=== PATIENT | male | born 1995 | race Caucasian/White ===

== ENCOUNTER 2020-12-30 14:33 | Emergency (ER) | payer BC ==
[~2020-12-30] VITALS: Ht 190.5 cm; Wt 113.9 kg
--- NOTE | 2020-12-30 14:46 | Emergency Room Report ---
History of Present Illness General Chief Complaint: Abdominal Pain Source: Patient Present Illness HPI 25-year-old male presents with abdominal pain x1 month. Patient states that he is trying to lose weight and has been taking orlistat to help his digestion. He has been experiencing anorexia and diarrhea (non bloody). He denies nausea, vomiting, constipation, fever, chills, flank pain, hematuria, dysuria or any other symptoms. He apparently went to see his primary care doctor in regards to his abdominal pain yesterday and was diagnosed with a strain. When he woke up this morning, he noticed that his bellybutton had a small amount of dark red bleeding so he was directed to the ER for further evaluation. He has never happened to him before. Denies any piercings or abdominal trauma, melena, hematochezia. The patient's symptoms were gradual onset, severity was moderate, duration since 1 month. Bleeding started this morning.. Quality: Nonarterial Past medical history: Denies Past surgical history: Denies Smoking: Denies Alcohol use: Denies Drug use: Marijuana Review of systems: CONST: No fevers or chills, No night sweats PULMONARY: No productive cough, No shortness of breath CARDIAC: No chest pain, No palpitations GI: No vomiting, ++ diarrhea , No melena_or_BRBPR : No dysuria, No hematuria, No discharge NEURO: No new_focal_weakness_or_numbness, No confusion, No vision changes 14 point Review of Systems is otherwise negative except per HPI Physical Exam: GENERAL: Awake_alert_ nontoxic, no acute distress Spo2 98% on RA -normal EYES: Extraocular muscles are intact. Conjunctivae clear. Lids without swelling ENT: External nose and ear normal_in_appearance. Oropharynx clear. Head_atraumatic, Moist_oral_mucosa NECK: No JVD. No meningismus. No thyromegaly. Supple. Trachea midline RESP: Normal respiratory effort. Symmetric rise. No stridor. Clear_to_auscultation_No_rales_No_wheezes CARDIAC: Regular rate and regular rhytm. No_significant pedal edema. ABDOMEN: Soft. Obese. No palpable mass. No palpable or visible hernia. Negat syd Zuleta sign. Negative Rovsing's. Negative obturator. No CVA tenderness to palpation. Umbilicus is coated in old dried blood. Upon probing the umbilicus with Q tips, there is scant discharge. I am unable to visualize the endpoint of the Q-tip secondary to patient's adipose tissue. There is no pain out of proportion Nondistended. Nontender_No_rebound_or_guarding. MSK: Normal muscle tone, without rigidity. Extremities without asymmetric deformity or swelling. SKIN: Warm and dry. No visible cyanosis or pallor NEUROLOGIC: Alert, oriented x3. Motor_and_sensation_grossly_intact. No truncal ataxia. Gait_normal Psych: Normal mood and affect, normal judgment and insight - COORDINATION OF CARE Case was discussed with: Patient Any labs and imaging that were ordered were interpreted as part of the medical decision making: Medical Decision Making/Plan: Differential diagnosis includes urachal fistula, umbilical hernia, colitis, diverticulitis, omphalitis, cellulitis, cholecystitis, choledocholithiasis, hepatitis, small bowel obstruction, volvulus, AAA, pancreatitis, atypical appendicitis, gastroparesis, gastritis, peptic ulcer disease, among others. Doubt necrotizing fasciitis Patient is well appearing with stable vital signs. Abdominal exam is non peritoneal with no guarding or rebound. Umbilical examination demonstrates old dried blood surrounding and within the umbilicus. It was probed with Q-tips and was found to have scant discharge. Labs show no acute abnormalities. No evidence of urinary tract infection. CT scan of the abdomen and pelvis was initially ordered with IV contrast, however patient confirms that he has an iodine allergy, stating that "his throat swells up", indicating possible severe anaphylactic allergy to CT iodine contrast. CT reading shows prominence of the spleen with mild thickening of the large bowel which may be from infectious or inflammatory colitis without obstruction or free air. There is inflammation of the subcutaneous tissues at the level of the umbilicus. 1630: I spoke with stat radiologist Dr Hernandez Bernstein to discuss possibility of urachal fistula. Due to lack of IV contrast, radiologist cannot confirm definite urachal fistula. He does see a linear structures along the umbilicus, but comments that they look more vascular in nature. 1635: I did speak with general education consultant Dr. Bolden who agrees with the current work-up and management and agrees to follow the patient in an outpatient setting. He has made an appointment to see the patient this Friday at 11 AM in his office. Patient was educated on the pathophysiology of possible urachal fistula, and that he will likely need prompt outpatient follow-up for possible resection. ED intervention included Zosyn. Tachycardia resolved. On repeat exam, abdominal exam is non tender and remains non peritoneal. No gross hemorrhage. Patient has reliable outpatient follow-up with PMD who can refer him to a general surgeon for evaluation for urethral fistula repair. The patient denies any bloody stool and has no pain out of proportion to exam, and no significant risk factors for mesenteric ischemia such as atrial fibrillation or severe PAD/PVD (peripheral arterial / vascular disease), thus definitive workup to rule out mesenteric ischemia was not pursued. Patient is afebrile, without any significant tenderness in the RUQ, and a negative [place] sign. The patients presentation does not appear to be consistent with acute cholecystitis and thus definitive imaging to rule it out was not pursued. The patient has no significant risk factors for AAA (abdominal aortic aneurysm) such as age over 50 with history of hypertension, connective tissue disorder, or 1st degree relative with AAA. the patient has normal dorsalis pedis pulses, no radiation of pain to the back, and no pulsatile mass felt on exam. The patients profile was overall low risk for AAA and definitive workup was not pursued. Pertinent results reviewed with the patient. I educated the patient on the current treatment plan including the risks, benefits, and alternatives. I also discussed the extent and limitations of the current evaluation. The patient expressed understanding and agreement with plan. I recommended PMD follow-up within 1-2 days. Also advised that the patient return to the Emergency Department as soon as possible if they experience any new, persistent, or worsening symptoms. 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 Results Rhythm Strip Time: 15:12 EP Interpretation: yes Rate: 108 Rhythm: no PVC's, no ectopy CT/MRI/US Diagnostic Results CT/MRI/US Diagnostic Results : Impression CT ABDOMEN + PELVIS Without Contrast HISTORY: Pain TECHNIQUE: One or more of the following dose reduction techniques were used: automated exposure control, adjustment of the mA and/or kV according to patient size, use of iterative reconstruction technique. One or more of the following dose reduction techniques were used: automated exposure control, adjustment of the mA and/or kV according to patient size, use of iterative reconstruction technique. Total Exam volume computed tomography dose index (CTDIvol) = 13.1 mGy and Dose Length Product (DLP) = 804.1mGY- TECHNIQUE: Multiple, contiguous axial cuts of the abdomen and pelvis are obtained from the lung bases to the ischial tuberosities. No IV or oral contrast is given. Sagittal and coronal reformatted images are available. COMPARISON: None FINDINGS: The lung bases are clear. Liver is unremarkable. Splenomegaly demonstrated. There is diffuse wall thickening of the large bowel noted without significant fat stranding. Noninflamed appendix. No hydronephrosis or nephrolithiasis. Underdistended urinary bladder. The gallbladder, bile ducts and pancreas are normal. The adrenal gland are unremarkable. The kidneys are normal in size and contour. No stones, lesions or hydronephrosis. Aorta is normal caliber. No adenopathy or extraluminal air. The osseous structures are normal. Small hiatal hernia. Skin thickening and stranding at the umbilical region. IMPRESSION: Prominence of the spleen with mild wall thickening of the large bowel which may be from infectious or inflammatory colitis without obstruction or free air. Noninflamed appendix. No hydronephrosis or nephrolithiasis appreciated. Inflammation of the subcutaneous tissues at the level of the umbilicus. <MYCVCSECTION> Communications: 12/30/20 16:33 Call From [facility] Dr. Kelly on 12/30 16:31 (-08:00) Dictated By: Hernandez Bernstein M.D. Reevaluation Time: 16:00 Last Vital Signs Date Time Temp Pulse Resp B/P (MAP) Pulse Ox O2 Delivery O2 Flow Rate FiO2 12/30/20 14:39 98.8 108 16 129/83 (98) 94 Room Air Status: improved Disposition: HOME, SELF-CARE Admit Decision Time: 16:41 Condition: Stable Scripts Cephalexin* (KEFLEX*) 500 Mg Capsule 500 MG ORAL EVERY 12 HOURS, #14 CAP 0 Refills Prov: Alena Kelly D.O. 12/30/20 Trimethoprim/Sulfamethoxazole 160/800* (BACTRIM DS TABLET*) 1 Each Tablet 1 TAB ORAL Q12H, #14 TAB 0 Refills Prov: Alena Kelly D.O. 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 Follow-up with your doctor sooner if your condition requires a more timely clinical reevaluation. Return to the emergency department immediately if you feel that your condition is worsening or if you have any new or concerning symptoms. Review your discharge instructions and take any prescriptions given as instructed. [facility] PROVIDES FREE OR LOW-COST HEALTH SERVICES TO PEOPLE WHO CAN SHOW PROOF THAT THEY LIVE IN [facility]. TO FIND MORE CLINICS PARTNERED WITH [facility] TO PROVIDE SERVICE, PLEASE CALL . Alena Kelly D.O. Dec 30, 2020 14:46
[2020-12-30] MEDS ORDERED: Omnipaque-300 100ml vial INJ PRN (15:00)
--- NOTE | 2020-12-30 15:10 | NUR ---
ED Nurse Note:blood and urine sent to labs
[2020-12-30 15:16] LABS: EOSINOPHILS % (AUTO) 4.7 % (0.0-3.0); HEMATOCRIT 47.2 % (42.0-52.0); HEMOGLOBIN 16.8 G/DL (14.2-18.0); MEAN CORPUSCULAR VOLUME 85 FL (80-99); MONOCYTES % (AUTO) 7.4 % (1.0-10.0); NEUTROPHILS % (AUTO) 56.8 % (45.0-75.0); PLATELET COUNT 206 K/UL (150-450); RED BLOOD COUNT 5.57 M/UL (4.70-6.10); RED CELL DISTRIBUTION WIDTH 12.2 % (11.6-14.8); WHITE BLOOD COUNT 5.8 K/UL (4.8-10.8)
[2020-12-30 15:24] LABS: APPEARANCE,URINE CLEAR; BILIRUBIN, URINE NEGATIVE (NEGATIVE); GLUCOSE, URINE (UA) NEGATIVE (NEGATIVE); KETONES,URINE 1+ (NEGATIVE); LEUKOCYTE ESTERASE ,URINE 1+ (NEGATIVE); NITRITE,URINE NEGATIVE (NEGATIVE); PH,URINE 8 (4.5-8.0); PROTEIN,URINE NEGATIVE (NEGATIVE); UROBILINOGEN,URINE 1 MG/DL (0.0-1.0)
[2020-12-30 15:25] LABS: INR 1.1 (0.9-1.1)
[2020-12-30 15:29] LABS: ANION GAP 9 mmol/L (5-15); BLOOD UREA NITROGEN 9 mg/dL (7-18); CALCIUM 9.4 MG/DL (8.5-10.1); CARBON DIOXIDE 27 MMOL/L (21-32); CHLORIDE 106 MMOL/L (98-107); CREATININE 1.2 MG/DL (0.55-1.30); POTASSIUM 3.9 MMOL/L (3.5-5.1); SODIUM 142 MMOL/L (136-145)
[2020-12-30 15:31] LABS: COLOR,URINE YELLOW
[2020-12-30 15:44] LABS: ALANINE AMINOTRANSFERASE 75 U/L (12-78); ALBUMIN 4.3 G/DL (3.4-5.0); ALBUMIN/GLOBULIN RATIO 1.2 (1.0-2.7); ALKALINE PHOSPHATASE 137 U/L (46-116); ASPARTATE AMINO TRANSFERASE 33 U/L (15-37); BILIRUBIN,TOTAL 1.5 MG/DL (0.2-1.0)
[2020-12-30 15:47] LABS: BILIRUBIN,DIRECT 0.3 MG/DL (0.0-0.3)
[2020-12-30 16:04] VITALS: BP 129/83
--- NOTE | 2020-12-30 16:05 | NUR ---
ED Nurse Note:pt. had abdominal CT done
[2020-12-30] MEDS ORDERED: CEPHALEXIN500 MG ORAL (16:10)
[2020-12-30] MEDS ORDERED: BACTRIM DS TAB1 EAC1 ORAL (16:10)
[2020-12-30] MEDS ORDERED: Piperacillin/Tazobactam 3.375 GM in NS 110 ML IVPB ONE (16:15)
--- NOTE | 2020-12-30 16:22 | Diagnostic Imaging Report ---
CT ABDOMEN + PELVIS Without Contrast HISTORY: Pain TECHNIQUE: One or more of the following dose reduction techniques were used: automated exposure control, adjustment of the mA and/or kV according to patient size, use of iterative reconstruction technique. One or more of the following dose reduction techniques were used: automated exposure control, adjustment of the mA and/or kV according to patient size, use of iterative reconstruction technique. Total Exam volume computed tomography dose index (CTDIvol) = 13.1 mGy and Dose Length Product (DLP) = 804.1mGY- TECHNIQUE: Multiple, contiguous axial cuts of the abdomen and pelvis are obtained from the lung bases to the ischial tuberosities. No IV or oral contrast is given. Sagittal and coronal reformatted images are available. COMPARISON: None FINDINGS: The lung bases are clear. Liver is unremarkable. Splenomegaly demonstrated. There is diffuse wall thickening of the large bowel noted without significant fat stranding. Noninflamed appendix. No hydronephrosis or nephrolithiasis. Underdistended urinary bladder. The gallbladder, bile ducts and pancreas are normal. The adrenal gland are unremarkable. The kidneys are normal in size and contour. No stones, lesions or hydronephrosis. Aorta is normal caliber. No adenopathy or extraluminal air. The osseous structures are normal. Small hiatal hernia. Skin thickening and stranding at the umbilical region. IMPRESSION: Prominence of the spleen with mild wall thickening of the large bowel which may be from infectious or inflammatory colitis without obstruction or free air. Noninflamed appendix. No hydronephrosis or nephrolithiasis appreciated. Inflammation of the subcutaneous tissues at the level of the umbilicus. <MYCVCSECTION> Communications: 12/30/20 16:33 Call From [facility] Dr. Kelly on 12/30 16:31 (-08:00)
[2020-12-30 16:49] VITALS: BP 130/82
--- NOTE | 2020-12-30 16:51 | NUR ---
ER DISCHARGE NOTE: Patient is cleared to be discharged per ERMD, pt is aox4, on room air, with stable vital signs. pt was given dc and prescription instructions, pt was able to verbalize understanding, pt id band and iv site removed without complications. pt is able to ambulate with steady gait. pt took all belongings.
== END 2020-12-30 17:00 | disposition home or self-care (01) ==
LOC: EMR 14:45
DX: Q64.4 Malformation of urachus (principal); R19.8 Other specified symptoms and signs involving the digestive system and abdomen; K52.9 Noninfective gastroenteritis and colitis, unspecified; L03.311 Cellulitis of abdominal wall; F12.90 Cannabis use, unspecified, uncomplicated; Z88.8 Allergy status to other drugs, medicaments and biological substances
CPT/HCPCS: 36415; 74176; 80053; 81003; 82248; 83690; 85025; 85610; 96365; 99284; J2543